=== PATIENT | female | born 1955 | race Caucasian/White ===

== ENCOUNTER 2016-12-08 20:12 | Emergency (ER) | payer OTHER ==
[~2016-12-08] VITALS: Ht 157.5 cm; Wt 90.7 kg
[2016-12-08 20:21] VITALS: BP 150/91
== END 2016-12-08 21:04 | disposition home or self-care (01) ==
LOC: ED 20:55
DX: S01.512A Laceration without foreign body of oral cavity, initial encounter (principal); X58.XXXA Exposure to other specified factors, initial encounter; Y93.89 Activity, other specified; Y99.8 Other external cause status; Y92.89 Other specified places as the place of occurrence of the external cause
CPT/HCPCS: 99281